=== PATIENT | female | born 1995 | race Caucasian/White ===

== ENCOUNTER 2019-08-29 21:57 | Inpatient (IN) ==
[2019-08-29] MEDS ORDERED: BRETHINE SUBQ PRN (21:58)
[2019-08-29] MEDS ORDERED: KEFZOL 1 GM/D5W 1 GM/50 ML IVPB IV PRN (21:58)
[2019-08-29] MEDS ORDERED: PEPCID IV PRN (21:58)
[2019-08-29] MEDS ORDERED: AMBIEN PO PRN (21:58)
[2019-08-29] MEDS ORDERED: STADOL IV PRN ×3 (21:58)
[2019-08-29] MEDS ORDERED: PEPCID PO PRN (21:58)
[2019-08-29] MEDS ORDERED: TYLENOL PO PRN (21:58)
[2019-08-29] MEDS ORDERED: ZOFRAN IV PRN (21:58)
[2019-08-29] MEDS ORDERED: AMPICILLIN 2 GM in NS 100 ML IV ONE (21:58)
[2019-08-29] MEDS ORDERED: PITOCIN 30 UNITS/NS 30 UNIT/500 ML IV.SOLN IV SCH (22:00)
[2019-08-29] MEDS ORDERED: SODIUM CHLORIDE 0.9% INJ PRN (22:16)
[2019-08-29] MEDS: LR 1,000 ML IV ONE (22:40)
[2019-08-29 22:53] LABS: URINE SOURCE VOIDED
[2019-08-29 22:59] LABS: BASO# 0.03 X1000 (0.0-0.2); BASO% 0.3 % (0.0-0.8); EOS% 0.9 % (0.0-10.0); HEMATOCRIT 32.9 % (37.0-47.0); HEMOGLOBIN 10.8 g/dL (12.0-16.0); IMM GRAN# 0.05 X1000 (0.0-0.04); IMM GRAN% 0.4 % (0.0-0.5); LYMPH# 2.81 X1000 (1.2-3.4); MCH 28.4 PG (27-31); MCHC 32.8 g/dL (33-37); MCV 86.6 FL (81-99); MONO# 0.99 X1000 (0.11-0.59); MONO% 8.5 % (1.7-9.3); MPV 10.5 FL (7.4-10.4); NEUT# 7.72 X1000 (1.4-6.5); NEUT% 65.9 % (42.2-75.2); PLT 312 X1000 (130-400); RDW 13.7 % (11.5-14.5)
[2019-08-29 23:01] LABS: BILIRUBIN URINE NEGATIVE (NEGATIVE); BLOOD URINE NEGATIVE (NEGATIVE); COLOR YELLOW; GLUCOSE URINE NEGATIVE (NEGATIVE); KETONE URINE TRACE mg/dL (NEGATIVE); LEUKOCYTES URINE NEGATIVE (NEGATIVE); NITRITE URINE NEGATIVE (NEGATIVE); PH URINE 5.5; PROTEIN URINE TRACE mg/dL (NEGATIVE); SP GRAVITY URINE 1.021; TURBIDITY URINE CLEAR (CLEAR); UROBILINOGEN URINE 2 mg/dL (NORMAL)
[2019-08-29 23:38] LABS: UR AMPHETAMINES QUAL NONE DETECTED (NONE DETECT); UR BARBITUATES QUAL NONE DETECTED (NONE DETECT); UR BENZODIAZEPIN QUAL NONE DETECTED (NONE DETECT); UR CANNABINOIDS QUAL NONE DETECTED (NONE DETECT); UR COCAINE QUAL NONE DETECTED (NONE DETECT); UR METHADONE QUAL NONE DETECTED (NONE DETECT); UR OPIATES QUAL NONE DETECTED (NONE DETECT); UR OXYCODONE QUAL NONE DETECTED (NONE DETECT); UR PCP QUAL NONE DETECTED (NONE DETECT)
[2019-08-30] MEDS ORDERED: CYTOTEC PO ONE
[2019-08-30] MEDS ORDERED: CYTOTEC ONE (00:18)
[2019-08-30] MEDS: CYTOTEC PO SCH ×2 (00:19→04:53)
[2019-08-30] MEDS: AMPICILLIN 1 GM in NS 50 ML IV SCH ×3 (02:23→10:03)
[2019-08-30] MEDS: PEPCID PO ONE ×2 (05:02→13:57)
[2019-08-30] MEDS: REGLAN PO ONE ×2 (05:02→13:57)
[2019-08-30] MEDS: LR 1,000 ML IV ONE ×2 (06:06→08:38)
[2019-08-30] MEDS ORDERED: XYLOCAINE-MPF 1% INJ ONE (07:27)
[2019-08-30] MEDS ORDERED: MINERAL OIL PO ONE (07:28)
[2019-08-30] MEDS ORDERED: LR 1,000 ML ONE ×2 (07:30→07:36)
[2019-08-30] MEDS ORDERED: FENTANYL-BUPIV-NS 500 MCG-0.125% 250 ML EPIDURAL PRN (08:04)
[2019-08-30] MEDS ORDERED: FENTANYL IV ONE (08:15)
--- NOTE | 2019-08-30 08:57 | HISTORY AND PHYSICAL ---
HISTORY OF PRESENT ILLNESS: Patient is 23-year-old white female A3, who is at 39 weeks gestation for induction of labor. Her care, she is group B strep positive, also Rh status is negative. PAST MEDICAL HISTORY: Unremarkable. PAST SURGICAL HISTORY: She has had dental surgery. PAST OB HISTORY: A3. Spontaneous vaginal delivery x1. She has had a spontaneous AB x1 and elective AB x2. TITLE ASSISTANT HISTORY: Menarche was at age 10. REVIEW OF SYSTEMS: All systems reviewed and noncontributory. FAMILY HISTORY: Significant for breast cancer. SOCIAL HISTORY: Tobacco use 3 to 4 cigarettes per day. Alcohol use: None. MEDICATIONS: vitamins. ALLERGIES: No known drug allergies. PHYSICAL EXAMINATION: VITAL SIGNS: Height 5 feet 5 inches, weight 221 pounds, temp 97.1 degrees, blood pressure 124/64, pulse of 84, respirations 18, heart rate in the 130s with positive accelerations. HEENT: Pupils equal, round, reactive to light and accommodation. Extraocular movements intact. Oropharynx clear. NECK: Supple. No thyromegaly. LUNGS: Clear to auscultation. HEART: Regular rate and rhythm. ABDOMEN: Gravid, nontender. Cervix was 2 cm dilated, 50% effaced, -2 station. Membranes were noted to be intact. EXTREMITIES: No clubbing, cyanosis, or edema noted. NEUROLOGIC: Cranial nerves 2-12 grossly intact. Motor 5/5. DTRs 2+ bilaterally. ASSESSMENT/PLAN: This is a 23-year-old white female A3 at 39 weeks gestation for induction of labor. Patient with group B strep positive. Will place on antibiotics for group B strep prophylaxis. Patient also noted to have Rh negative and we will determine whether she needs RhoGAM after delivery. Anticipate vaginal delivery. The patient may have epidural when desired. cc: Gustavo Banuelos III, MD
[2019-08-30] MEDS ORDERED: BICITRA PO ONE (13:47)
[2019-08-30] MEDS ORDERED: KEFZOL 2 GM/D5W 2 GM/50 ML IVPB IV ONE (13:48)
[2019-08-30] MEDS ORDERED: REGLAN PO ONE (13:48)
[2019-08-30] MEDS ORDERED: DURAMORPH ONE (14:16)
[2019-08-30] MEDS ORDERED: ZOFRAN ONE (14:58)
[2019-08-30] MEDS ORDERED: NEO-SYNEPHRINE ONE (14:58)
[2019-08-30] MEDS ORDERED: SODIUM CHLORIDE 0.9% 10 ML ONE (14:58)
[2019-08-30] MEDS ORDERED: ROBINUL ONE (14:58)
[2019-08-30] MEDS ORDERED: EPHEDRINE ONE (14:58)
[2019-08-30] MEDS ORDERED: PITOCIN ONE (14:58)
[2019-08-30] MEDS ORDERED: VERSED ONE (15:01)
[2019-08-30] MEDS ORDERED: TORADOL ONE (15:35)
[2019-08-30] MEDS ORDERED: NARCAN INJ PRN (15:45)
[2019-08-30] MEDS ORDERED: BENADRYL IV PRN (15:45)
[2019-08-30] MEDS ORDERED: ZOFRAN ODT PO PRN (15:45)
[2019-08-30] MEDS ORDERED: ZOFRAN IV PRN ×2 (15:45)
[2019-08-30] MEDS ORDERED: MORPHINE IV PRN (15:46)
[2019-08-30] MEDS ORDERED: DULCOLAX PR PRN (15:51)
[2019-08-30] MEDS ORDERED: BOOSTRIX VACCINE IM ONE (15:51)
[2019-08-30] MEDS ORDERED: DEMEROL IM PRN (15:51)
[2019-08-30] MEDS ORDERED: AMBIEN PO PRN (15:51)
[2019-08-30] MEDS ORDERED: PITOCIN IM PRN (15:51)
[2019-08-30] MEDS ORDERED: M-M-R II VACCINE SUBQ ONE (15:51)
[2019-08-30] MEDS ORDERED: PITOCIN 20 UNITS/NS 20 UNITS/1,000 ML IV.SOLN IV ONE (15:51)
[2019-08-30] MEDS ORDERED: ATARAX PO PRN (15:51)
[2019-08-30] MEDS ORDERED: HYDROXYZINE IM PRN (15:51)
[2019-08-30] MEDS ORDERED: PHENERGAN IM PRN (15:51)
[2019-08-30] MEDS ORDERED: DEMEROL PO PRN ×2 (15:51)
--- NOTE | 2019-08-30 17:34 | OPERATIVE NOTE ---
PROCEDURE DATE: 08/30/2019 PREOPERATIVE DIAGNOSIS: Intrauterine at 39 weeks with intolerance of labor and patient desires permanent sterilization. POSTOPERATIVE DIAGNOSIS: As above with operative delivery of a male infant, 5 pounds 1 ounce, with Apgars of 9 and 9 at 1449 hours on 08/30/2019. PROCEDURE: Primary low transverse and bilateral tubal ligation. SURGEON: Gustavo Banuelos III, MD ASSIST: ORT. ANESTHESIA: Spinal, Dr. Awan. FINDINGS: Normal-appearing uterus, tubes, and ovaries. COMPLICATIONS: None. ESTIMATED BLOOD LOSS: 700 mL. SPECIMENS REMOVED: Right and left fallopian tube segments. COUNTS: All counts were correct x3. INDICATIONS: Patient is a 23-year-old white female G2, P1, at 39 weeks gestation with intolerance of labor. a Intrauterine at 39 weeks with intolerance of labor and patient desires permanent sterilization. After several attempts of corrective measures the fetus still exhibited late decelerations in early phase labor. Discussed with patient. We will proceed with operative delivery. Patient had also expressed desire for permanent sterilization. Patient counseled about risks of surgery including bleeding, infection, bowel or bladder injury. Patient counseled also about the permanency of the procedure, failure rate of 2 to 10/999, as well as the availability of reversible alternatives such as IUD, control pills, patches, etc. PROCEDURE IN DETAIL: Procedure patient was taken to labor and delivery OR and spinal anesthesia was placed and the patient was placed in supine position with a roll under right hip and then she was prepped and draped in a sterile fashion with placement of Santos catheter. Adequate anesthesia was noted by using Allis clamps on skin. Then a Pfannenstiel skin incision was made on the lower abdomen using a scalpel. This was then taken down sharply to the fascia layer. A small caesar was made in the rectus fascia. Fascial incision was extended bilaterally by curved Emery scissors and pickups, and then the superior and inferior aspects of the rectus fascia were then bluntly and sharply dissected. The rectus muscles divided midline. Peritoneal layer was entered bluntly and the peritoneal incision was extended inferiorly and superiorly with care taken to avoid the bladder. Bladder blade was placed in the abdominal cavity this point time and the bladder reflection was created using Metzenbaum scissors. At this point in time, a transverse incision was made in the lower uterine segment using a scalpel. The hysterotomy site was extended bilaterally by surgeon's fingers and clear fluid was noted upon entry into the amniotic cavity. head was then elevated toward the hysterotomy site and with gentle fundal pressure the head was delivered, bulb suction of nose and mouth. Then the rest of the body was delivered atraumatically with gentle fundal pressure. Umbilical cord was clamped twice and cut. handed to nursery nurse in attendance for delivery. Cord blood sample was obtained at this time. The placenta was then manually extracted. The uterus was exteriorized. Wet lap was placed around the uterus. Dry lap was then used to curette the uterine cavity of clots and debris. Uterine incision was then closed using 0 chromic in a running locking fashion x1. Area of oozing on the right corner was noted, made hemostatic using [id number] stitch of 0 chromic. A Radha clamp was then used to grasp the fallopian tube near the isthmus and then a hole was made in the mesosalpinx using electrocautery. Then 0 plain suture was then used to ligate a portion of the fallopian tube and then this was then excised using Metzenbaum scissors and electrocautery was used to obtain hemostasis as well as to touch the open ends of the fallopian tube. The left fallopian tube was then grasped with a Lafayette clamp. A hole was made in the mesosalpinx using electrocautery. Then a 0 plain suture was used to ligate a portion of the fallopian tube near the isthmus. This was then excised using Metzenbaum scissors. Then, the once again electrocautery was used to touch the open ends of the fallopian tube and good hemostasis was noted. The fallopian tube segment was also handed off to be placed in a specimen container. The posterior cul-de-sac was then irrigated copiously. The uterus was replaced back into the abdominal cavity. Pericolic gutters were cleansed using moist lap sponges. The uterine incision and bladder reflection were inspected and good hemostasis was noted there as well. Peritoneal layer was then closed using 0 chromic in a running fashion x1, and then 2 stitches were used to reapproximate the rectus muscle in the midline. The fascial incision was then closed using 0 PDS in a running fashion x1. Subcutaneous layer was then irrigated and electrocautery was used to obtain hemostasis. Then, interrupted stitches of 2-0 chromic were used to reapproximate the subcutaneous layer. Then the skin was then reapproximated using ko. Patient tolerated the procedure well and was taken to the recovery room in stable condition. All counts were correct x3. cc: Gustavo Banuelos III, MD
[2019-08-30] MEDS: MYLICON PO SCH ×2 (17:52→21:47)
[2019-08-30] MEDS: PITOCIN 10 UNITS/NS 1,000 ML IV SCH (17:56)
[2019-08-30] MEDS ORDERED: PERCOCET-5 PO PRN (18:04)
[2019-08-30] MEDS: TORADOL IV SCH (21:47)
[2019-08-30] MEDS: PERICOLACE PO SCH (21:47)
[2019-08-31] MEDS: PITOCIN 10 UNITS/NS 1,000 ML IV SCH (02:05)
[2019-08-31] MEDS: TORADOL IV SCH ×2 (04:12→10:11)
[2019-08-31] MEDS: CYTOTEC PO SCH (04:21)
[2019-08-31 04:44] LABS: BASO# 0.02 X1000 (0.0-0.2); BASO% 0.2 % (0.0-0.8); EOS# 0.07 X1000 (0.0-0.7); EOS% 0.6 % (0.0-10.0); HEMATOCRIT 27.1 % (37.0-47.0); HEMOGLOBIN 8.9 g/dL (12.0-16.0); IMM GRAN# 0.03 X1000 (0.0-0.04); IMM GRAN% 0.3 % (0.0-0.5); LYMPH# 1.73 X1000 (1.2-3.4); MCH 29.2 PG (27-31); MCHC 32.8 g/dL (33-37); MCV 88.9 FL (81-99); MONO# 0.84 X1000 (0.11-0.59); MONO% 7.8 % (1.7-9.3); MPV 10.3 FL (7.4-10.4); NEUT# 8.14 X1000 (1.4-6.5); NEUT% 75.1 % (42.2-75.2); PLT 222 X1000 (130-400); RBC 3.05 XMIL (4.2-5.4); RDW 13.8 % (11.5-14.5); WBC 10.83 X1000 (4.8-10.8)
--- NOTE | 2019-08-31 08:51 | OB/GYN PROGRESS NOTE ---
- Subjective PO1 no cx x hunger vssaf s/nt c/d scds in place hgb 8.9 fm 10.8 A PO1 c/s for intol adv diet encourage ambulation cath out to void pain mgmt routime po care OB Physical Exam Vital Signs - 8 hr 08/31/19 04:00 08/31/19 04:16 08/31/19 07:03 Temperature 97.8 F 97.2 F L 97.2 F L Pulse Rate 72 68 98 H Respiratory Rate 18 18 18 Blood Pressure 96/50 106/50 106/58 O2 Sat by Pulse Oximetry 96 - CONSTITUTIONAL General Appearance: appears well Active Medications Generic Name Dose Route Start Last Admin Trade Name Freq PRN Reason Stop Dose Admin Acetaminophen 650 mg 08/29/19 21:58 Tylenol PO Q4-6H PRN PRN Headache Bisacodyl 10 mg 08/30/19 15:[address] PRN PRN gas unrelieved by Mylicon Diphenhydramine HCl 12.5 mg 08/30/19 15:45 Benadryl IV 08/31/19 15:44 Q6H PRN PRN ITCHING IF ZOFRAN INEFFECTIVE Hydroxyzine HCl 50 mg 08/30/19 15:51 Atarax PO Q3-4H PRN PRN Nausea Hydroxyzine HCl 50 mg 08/30/19 15:51 Hydroxyzine IM Q3-4H PRN PRN Nausea Ibuprofen 800 mg 08/30/19 15:51 Motrin PO Q8H PRN PRN Pain Ketorolac Tromethamine 30 mg 08/30/19 21:00 08/31/19 04:12 Toradol IV 08/31/19 09:01 30 mg Q6H DEQUAN Administration Meperidine HCl 50 mg 08/30/19 15:51 Demerol IM Q3H PRN PRN Pain Meperidine HCl 50 mg 08/30/19 15:51 Demerol PO Q4H PRN PRN Pain (1-6 on Pain Scale) Meperidine HCl 100 mg 08/30/19 15:51 Demerol PO Q4H PRN PRN Pain (7-10 on Pain Scale) Morphine Sulfate 2 - 4 mg 08/30/19 15:46 Morphine IV Q2H PRN PRN BREAKTHROUGH PAIN Naloxone HCl 0.4 mg 08/30/19 15:45 Narcan INJ 08/31/19 15:44 DIRECTED PRN PRN Ondansetron HCl 4 mg 08/29/19 21:58 Zofran IV PRN PRN Nausea Ondansetron HCl 4 mg 08/30/19 15:45 Zofran Odt PO 08/31/19 15:44 DIRECTED PRN PRN Ondansetron HCl 4 mg 08/30/19 15:45 Zofran IV 08/31/19 15:44 DIRECTED PRN PRN Ondansetron HCl 4 mg 08/30/19 15:45 Zofran IV 08/31/19 15:44 Q4-6H PRN PRN Itching Oxycodone/Acetaminophen 1 each 08/30/19 18:04 Percocet-5 PO Q4H PRN PRN Pain Oxycodone/Acetaminophen 1 each 08/30/19 18:05 Percocet-10 PO Q4H PRN PRN Pain Promethazine HCl 25 mg 08/30/19 15:51 Phenergan IM Q3H PRN PRN Pain Senna/Docusate Sodium 1 each 08/30/19 21:00 08/30/19 21:47 Pericolace PO 1 each QHS DEQUAN Administration Simethicone 80 mg 08/30/19 18:00 08/30/19 21:47 Mylicon PO 80 mg PC + HS DEQUAN Administration Simethicone 80 mg 08/30/19 15:51 Mylicon PO PRN PRN GAS Zolpidem Tartrate 10 mg 08/29/19 21:58 Ambien PO HS PRN PRN Sleep Laboratory Results - last 24 hr 08/31/19 08/31/19 04:30 04:30 WBC 10.83 H RBC 3.05 L Hgb 8.9 L D Hct 27.1 L MCV 88.9 MCH 29.2 MCHC 32.8 L RDW Std Deviation 13.8 Plt Count 222 MPV 10.3 Immature Gran % (Auto) 0.3 Neut % (Auto) 75.1 Lymph % (Auto) 16.0 L [place] % (Auto) 7.8 Eos % (Auto) 0.6 Baso % (Auto) 0.2 Immature Gran # (Auto) 0.03 Neut # (Auto) 8.14 H Lymph # (Auto) 1.73 [place] # (Auto) 0.84 H Eos # (Auto) 0.07 Baso # (Auto) 0.02 ABO/Rh O NEGATIVE Weak D (Du) WEAK D NEGATIVE Screen NEGATIVE RhIG Candidate? YES
[2019-08-31] MEDS: MYLICON PO SCH ×4 (10:00→22:23)
[2019-08-31] MEDS: MYLICON PO PRN ×2 (10:11→13:24)
[2019-08-31] MEDS ORDERED: LR 1,000 ML IV SCH (15:53)
[2019-08-31] MEDS: PERCOCET-10 PO PRN ×2 (18:44→22:23)
[2019-08-31] MEDS: MOTRIN PO PRN (18:45)
[2019-08-31] MEDS: PERICOLACE PO SCH (22:23)
[2019-09-01] MEDS: MOTRIN PO PRN ×3 (03:17→19:58)
[2019-09-01] MEDS: MYLICON PO PRN (03:17)
[2019-09-01] MEDS: PERCOCET-10 PO PRN ×2 (03:17→14:26)
--- NOTE | 2019-09-01 08:37 | OB/GYN PROGRESS NOTE ---
- Subjective PO2 no cx vssaf s/nt cdi -cce A po2 c/s intol alysha reg diet ambulating voiding ready for home in am OB Physical Exam Vital Signs - 8 hr 09/01/19 04:25 09/01/19 07:57 Temperature 97 F L 96.5 F L Pulse Rate 80 68 Respiratory Rate 18 18 Blood Pressure 114/68 129/67 O2 Sat by Pulse Oximetry 96 98 - CONSTITUTIONAL General Appearance: appears well Active Medications Generic Name Dose Route Start Last Admin Trade Name Freq PRN Reason Stop Dose Admin Acetaminophen 650 mg 08/29/19 21:58 Tylenol PO Q4-6H PRN PRN Headache Bisacodyl 10 mg 08/30/19 15:51 Dulcolax [place] PRN PRN gas unrelieved by Mylicon Hydroxyzine HCl 50 mg 08/30/19 15:51 Atarax PO Q3-4H PRN PRN Nausea Hydroxyzine HCl 50 mg 08/30/19 15:51 Hydroxyzine IM Q3-4H PRN PRN Nausea Ibuprofen 800 mg 08/30/19 15:51 09/01/19 03:17 Motrin PO 800 mg Q8H PRN PRN Administration Pain Meperidine HCl 50 mg 08/30/19 15:51 Demerol IM Q3H PRN PRN Pain Meperidine HCl 50 mg 08/30/19 15:51 Demerol PO Q4H PRN PRN Pain (1-6 on Pain Scale) Meperidine HCl 100 mg 08/30/19 15:51 Demerol PO Q4H PRN PRN Pain (7-10 on Pain Scale) Morphine Sulfate 2 - 4 mg 08/30/19 15:46 Morphine IV Q2H PRN PRN BREAKTHROUGH PAIN Ondansetron HCl 4 mg 08/29/19 21:58 Zofran IV PRN PRN Nausea Oxycodone/Acetaminophen 1 each 08/30/19 18:04 09/01/19 07:54 Percocet-5 PO 1 each Q4H PRN PRN Administration Pain Oxycodone/Acetaminophen 1 each 08/30/19 18:05 09/01/19 03:17 Percocet-10 PO 1 each Q4H PRN PRN Administration Pain Promethazine HCl 25 mg 08/30/19 15:51 Phenergan IM Q3H PRN PRN Pain Senna/Docusate Sodium 1 each 08/30/19 21:00 08/31/19 22:23 Pericolace PO 1 each QHS DEQUAN Administration Simethicone 80 mg 08/30/19 18:00 08/31/19 22:23 Mylicon PO 80 mg PC + HS DEQUAN Administration Simethicone 80 mg 08/30/19 15:51 09/01/19 03:17 Mylicon PO 80 mg PRN PRN Administration GAS Zolpidem Tartrate 10 mg 08/29/19 21:58 Ambien PO HS PRN PRN Sleep Laboratory Results - last 24 hr 08/31/19 04:30 ABO/Rh O NEGATIVE Weak D (Du) WEAK D NEGATIVE Screen NEGATIVE RhIG Candidate? YES
[2019-09-01] MEDS: MYLICON PO SCH ×4 (09:28→21:21)
[2019-09-01] MEDS: PERICOLACE PO SCH (21:21)
[2019-09-02] MEDS: PERCOCET-10 PO PRN ×2 (00:31→07:40)
--- NOTE | 2019-09-02 07:19 | OB/GYN PROGRESS NOTE ---
- Subjective 23 yo POD#3 s/p 1LTCS, BTL at 39w0d for intolerance, Rh neg, obesity Patient seen and examined. Pain controlled. She notes minimal lochia. She is ambulating and voiding without difficulty. She is passing flatus and has had a bowel movement. She is tolerating a regular diet, denies nausea/vomiting. She had a BTL for pp contraception. She is . Baby is doing well. OB Physical Exam Vital Signs - 8 hr 09/02/19 00:00 Temperature 97.4 F L Pulse Rate 98 H Respiratory Rate 20 Blood Pressure 142/78 O2 Sat by Pulse Oximetry 99 - CONSTITUTIONAL General Appearance: appears well, alert, no apparent distress - EYES Eyes: PERRL/EOMI - HEAD, EARS, NOSE, MOUTH & THROAT HENMT: normocephalic/atraumatic - RESPIRATORY Respiratory: lungs clear, normal breath sounds, no respiratory distress - CARDIOVASCULAR Cardiovascular: regular rate, rhythm, no edema, no murmur - GASTROINTESTINAL (ABDOMEN) Abdominal Exam: normal bowel sounds, non tender, soft, other (fundus firm, below umbilicus. Pfannensteil incision closed with ko. C/D/I.) - MUSCULOSKELETAL Extremity: normal range of motion, non-tender, no pedal edema - NEUROLOGIC Neurologic: grossly normal - PSYCHIATRIC Psych/Mental Status: normal mood/affect Active Medications Generic Name Dose Route Start Last Admin Trade Name Freq PRN Reason Stop Dose Admin Acetaminophen 650 mg 08/29/19 21:58 Tylenol PO Q4-6H PRN PRN Headache Bisacodyl 10 mg 08/30/19 15:51 Dulcolax [place] PRN PRN gas unrelieved by Mylicon Hydroxyzine HCl 50 mg 08/30/19 15:51 Atarax PO Q3-4H PRN PRN Nausea Hydroxyzine HCl 50 mg 08/30/19 15:51 Hydroxyzine IM Q3-4H PRN PRN Nausea Ibuprofen 800 mg 08/30/19 15:51 09/01/19 19:58 Motrin PO 800 mg Q8H PRN PRN Administration Pain Meperidine HCl 50 mg 08/30/19 15:51 Demerol IM Q3H PRN PRN Pain Meperidine HCl 50 mg 08/30/19 15:51 Demerol PO Q4H PRN PRN Pain (1-6 on Pain Scale) Meperidine HCl 100 mg 08/30/19 15:51 Demerol PO Q4H PRN PRN Pain (7-10 on Pain Scale) Morphine Sulfate 2 - 4 mg 08/30/19 15:46 Morphine IV Q2H PRN PRN BREAKTHROUGH PAIN Ondansetron HCl 4 mg 08/29/19 21:58 Zofran IV PRN PRN Nausea Oxycodone/Acetaminophen 1 each 08/30/19 18:04 09/01/19 07:54 Percocet-5 PO 1 each Q4H PRN PRN Administration Pain Oxycodone/Acetaminophen 1 each 08/30/19 18:05 09/02/19 00:31 Percocet-10 PO 1 each Q4H PRN PRN Administration Pain Promethazine HCl 25 mg 08/30/19 15:51 Phenergan IM Q3H PRN PRN Pain Senna/Docusate Sodium 1 each 08/30/19 21:00 09/01/19 21:21 Pericolace PO 1 each QHS DEQUAN Administration Simethicone 80 mg 08/30/19 18:00 09/01/19 21:21 Mylicon PO 80 mg PC + HS DEQUAN Administration Simethicone 80 mg 08/30/19 15:51 09/01/19 03:17 Mylicon PO 80 mg PRN PRN Administration GAS Zolpidem Tartrate 10 mg 08/29/19 21:58 Ambien PO HS PRN PRN Sleep OB Assessment & Plan (1) S/P Status: Acute Plan: 23 yo POD#3 s/p 1LTCS, BTL at 39w0d for intolerance of labor, Rh neg 1. HD stable, afebrile 2. Routine post- care 3. Encourage ambulation, breast feeding 4. D/C home today, follow-up with Dr. Banuelos in 7 days for staple removal 5. s/p Rhogam injection
[2019-09-02] MEDS: MOTRIN PO PRN (07:40)
[2019-09-02 07:49] VITALS: BP 114/62
--- NOTE | 2019-09-02 07:59 | DISCHARGE SUMMARY ---
ADMISSION DATE: 08/29/2019 DISCHARGE DATE: 09/02/2019 CONDITION ON DISCHARGE: Stable. ADMITTING PHYSICIAN: Dr. Adriano Banuelos. FINAL DIAGNOSES: 1. A 23-year-old, G5, P2-0-3-2, postoperative day #3 status post primary low transverse section and bilateral tubal ligation for intolerance of labor. 2. Obesity. 3. Rh negative. HOSPITAL COURSE: The patient presented to Labor and Delivery for an elective induction of labor. During induction, fetus showed intolerance of labor, and decision was made to proceed with a primary section. A primary low transverse section and bilateral tubal ligation were performed on 08/30/2019 without complication. She had a routine postoperative course, and was deemed stable for discharge on postop day #3. She is ambulating and voiding without difficulty. Her pain is controlled. She has had a bowel movement. She is tolerating regular diet. Notes minimal lochia. She received RhoGAM on 08/31/2019 for Rh-negative status. DISCHARGE MEDICATIONS: 1. Percocet 10/325 p.o. every 4 hours p.r.n. pain, dispense #20. 2. Motrin 800 mg p.o. every 8 hours p.r.n. pain. 3. Colace 100 mg p.o. b.i.d. p.r.n. constipation. 4. Ferrous sulfate 325 mg p.o. daily. DISCHARGE INSTRUCTIONS: Patient instructed to notify doctor with temperature greater than 100.4 degrees Fahrenheit, vaginal bleeding greater than 1 pad an hour, foul-smelling vaginal discharge, severe abdominal pain, erythema or purulence from incision site. FOLLOWUP: Patient instructed to call the office on Tuesday to follow up in 1 week for staple removal. cc: Gustavo Banuelos III, MD
[2019-09-02] MEDS: MYLICON PO SCH (08:30)
[2019-09-02] MEDS ORDERED: FERROUS SULFATE PO SCH (09:00)
== END 2019-09-02 12:05 | disposition home or self-care (01) | DRG 785 ==
LOC: LD 21:57
PROVIDERS: ADMIT Obstetrics & Gynecology; ATTEND Obstetrics & Gynecology